=== PATIENT | female | born 2000 | race African-American/Black ===

== ENCOUNTER 2020-10-03 18:29 | Emergency (ER) | payer OTHER, SELFPAY ==
[2020-10-03 18:50] VITALS: BP 123/62; PULSE 76; RESP 20; TEMP 36.5; O2SAT 100; BMI 29.2
--- NOTE | 2020-10-03 20:21 | XR_ITS ---
EXAMINATION: CHEST 1 VIEW CLINICAL INFORMATION: Chest pain. COMPARISON: None. TECHNIQUE: An AP view of the chest is provided. FINDINGS: The cardiac silhouette is not enlarged. The mediastinal and hilar contours are unremarkable. There are neither pleural effusions nor pneumothoraces. There are no consolidations. The osseous structures are unremarkable. XR/XR chest 1V IMPRESSION: No evidence for acute disease.
--- NOTE | 2020-10-03 20:21 | ECG_ITS ---
Test Reason : CHEST PAIN Blood Pressure : / mmHG Vent. Rate : 051 BPM Atrial Rate : 051 BPM P-R Int : 122 ms QRS Dur : 086 ms QT Int : 428 ms P-R-T Axes : 027 035 037 degrees QTc Int : 394 ms Sinus bradycardia with sinus arrhythmia Otherwise normal ECG No previous ECGs available Referred By: Marisa Colbert Electronically Signed By:TRAV REDDY MD
--- NOTE | 2020-10-03 20:22 | ED.CHESTPAIN ---
HPI - Chest Pain General Chief Complaint: Chest Pain Stated Complaint: Chest Pain Time Seen by Provider: 10/03/20 20:20 Source: patient Mode of arrival: ambulatory Limitations: no limitations History of Present Illness HPI narrative: 20-year-old female came in with few hours history of sore throat and coughing pain in the right chest when she coughs. Symptoms started about 5 hours ago before arrival, no recent exposure to sick contacts, symptoms is intermittent, no aggravating factors, no alleviating factors, associated with sore throat and dry cough, patient at low risk for PE or coronary artery disease. Related Data Home Medications Medication Instructions Recorded Confirmed fluoxetine 1 cap PO DAILY 10/03/20 10/03/20 hydroxyzine pamoate 1 cap PO ONCE PRN 10/03/20 10/03/20 Allergies Allergy/AdvReac Type Severity Reaction Status Date / Time No Known Allergies Allergy Unverified 08/01/20 16:50 [No Known Allergies*] Review of Systems Review of Systems: All other systems are reviewed and are negative Constitutional: Reports as per HPI and Reports no additional constitutional complaints Eyes: Reports as per HPI and Reports no additional eye complaints Reports system reviewed and no additional complaints, except as documented Cardiovascular: Reports as per HPI and Reports no additional cardiovascular complaints Respiratory: Reports as per HPI and Reports no additional respiratory complaints Gastrointestinal: Reports as per HPI and Reports no additional gastrointestinal complaints Genitourinary: Reports no additional female genitourinary complaints Musculoskeletal: Reports no additional musculoskeletal complaints Skin/Breast: Reports system reviewed and no additional complaints, except as docu Psychiatric: Reports no additional psychiatric complaints Endocrine: Reports no additional endocrine complaints Hematologic/Lymphatic: Reports no additional hematologic/lymphatic complaints Allergic/Immunologic: Reports no additional allergic/immunologic complaints Reports system reviewed and no additional complaints, except as documented and Reports Abnormal speech present [facility] Past Medical History Medical History Anemia Anxiety Asthma Depression Social History Social History Alcohol intake: never Smoked in Last 30 Days: No Substance Use Type: Marijuana Substance Use Frequency: Daily Last Used Substance: Just Prior to Admission Any prior treatment program specific to substance use: No Advance Directives: No Advance Directives Information Provided: Yes Physical Exam Vital Signs: Vital Signs: Last Vital Signs Temp 97.7 F 10/03/20 18:50 Pulse 76 10/03/20 18:50 Resp 20 10/03/20 18:50 BP 123/62 10/03/20 18:50 Pulse Ox 100 10/03/20 18:50 Body Mass Index 29.2 Vital signs have been reviewed as normal and appeared to be correct. Blood pressure normal. Heart rate normal. Respiration rate normal. Temperature normal. Oxygen saturation normal. Appearance: Alert. Oriented X3. No acute distress. Head: Normal external exam. Normocephalic. Atraumatic. No Sanders signs noted. No raccoon eyes noted Eyes: PERRLA. EOMI. Conjunctiva and sclera normal. Eyelids normal. ENT: EAC normal. TM's Normal. Pharynx normal. Uvula midline. Moist mucous membranes. No trismus noted. No drooling noted. No muffled voice noted. Neck: Normal inspection. Neck supple. FROM. No adenopathy. Thyroid Normal. No meningeal signs. No neck mass noted. CVS: Normal heart rate and rhythm. Heart sound normal. No murmurs noted. Pulses normal throughout. Respiratory: No respiratory distress. Painless inspiration. Breath sounds normal. No wheezes/rales/rhonchi noted. Chest nontender. No accessory muscle usage noted or decreased air movement noted. Abdomen: Soft and nontender. Bowel sounds normal in all 4 quadrants. No distention noted. No organomegaly noted. No visible injury noted. Back: No CVA tenderness. Full range of motion noted. Skin: Skin warm and dry. Normal skin color. Normal skin turgor. No rashes/lesions/lacerations noted. Extremities: No lower extremity edema. Extremities exhibit normal range of motion. Extremities nontender. Neuro: Oriented X 3. No motor deficit. No sensory deficit. Reflexes normal. MDM - Chest Pain MDM Narrative Medical decision making narrative: Assessment and plan. At 20-year-old female otherwise healthy presented with chest pain with coughing, patient had unremarkable EKG, negative troponin, chest x-ray is unremarkable, stable vital signs, also, patient also complaining of sore throat and rapid strep is negative. Will discharge the patient to follow-up with PCP. Lab Data Attestation: I reviewed the patient's lab results. Labs: Lab Results 10/03/20 Range/Units 21:23 Troponin I High Sens < 3.5 (<3.5-17.0) ng/L Imaging Data Chest x-ray: Radiologist's impression: No acute pathology. ECG Data ECG #1: Interpretation: Sinus bradycardia at 51 beats per minute, normal axis deviation, normal intervals, no ST-T changes. Discharge Plan Discharge Clinical Impression: Atypical chest pain, Acute sore throat Patient Disposition: Home, Self-Care Instructions: Pharyngitis (ED) Prescriptions: No Action hydroxyzine pamoate 50 mg capsule 1 cap PO ONCE PRN (Reason: anxiety) RF: 0 fluoxetine 20 mg capsule 1 cap PO DAILY RF: 0 Referrals: Long Fry MD [Primary Care Provider] - 2 days
[2020-10-03 22:19] LABS: Troponin-I High Sensitivity < 3.5 ng/L (<3.5-17.0)
== END 2020-10-03 22:00 | disposition home or self-care (01) ==
PROVIDERS: Emergency Provider Emergency Medicine; PCP Pediatrics
DX: R07.89 Other chest pain (principal); J02.9 Acute pharyngitis, unspecified; F12.90 Cannabis use, unspecified, uncomplicated; Z79.899 Other long term (current) drug therapy
CPT/HCPCS: 71045; 84484; 87071; 87880; 93005; 99283; 99284

== ENCOUNTER 2020-10-16 09:16 | Outpatient (REF) | payer OTHER, SELFPAY | END 2020-10-16 09:17 | disposition home or self-care (01) | LOC: HO.LAB 09:16 | PROVIDERS: Visit Provider Internal Medicine | DX: Z20.828 Contact with and (suspected) exposure to other viral communicable diseases (principal) | CPT/HCPCS: C9803; U0003 ==

== ENCOUNTER 2023-10-02 15:38 | Emergency (ER) | payer OTHER, SELFPAY ==
--- NOTE | ~2023-10-02 | XR_ITS ---
EXAMINATION: XR HAND, RIGHT CLINICAL INFORMATION: Hand pain COMPARISON: None available. TECHNIQUE: PA, lateral, and oblique views of the right hand. FINDINGS: No fractures, subluxations, dystrophic calcifications, arthropathic changes or soft tissue inflammatory changes noted. Normal bone mineralization. Incidental 2 mm negative ulnar variance. XR/XR hand RT min 3V IMPRESSION: Normal right hand.
--- NOTE | 2023-10-02 15:56 | ED.GENADULT ---
HPI - General Adult General Chief complaint: Extremity Injury, Upper Stated complaint: R hand pain, injury at home Time Seen by Provider: 10/02/23 16:22 Source: patient Mode of arrival: ambulatory Limitations: no limitations History of Present Illness HPI narrative: 23 year old female with pmhx significant for asthma and anxiety presents to the ED today with right hand pain/swelling s/p punching her tiled floor 5 days ago. Admits to being frustrated and overstimulated causing her to punch the floor. Endorses pain to 3rd, 4th, and 5th digits on right hand, worse with movement. No radiation of pain. Denies left wrist, forearm, or elbow pain. Has been using an icepack at home with temporary relief of pain. Has not taken medications at home for this. Denies fever, chills, nausea/vomiting, numbness tingling or weakness of the right upper extremity. Related Data Home Medications Medication Instructions Recorded Confirmed fluoxetine 20 mg capsule 1 cap PO DAILY 10/03/20 10/03/20 hydroxyzine pamoate 50 mg capsule 1 cap PO ONCE PRN anxiety 10/03/20 10/03/20 Allergies Allergy/AdvReac Type Severity Reaction Status Date / Time No Known Allergies Allergy Verified 10/02/23 15:55 [No Known Allergies*] Review of Systems Review of Systems: Constitutional: No fever, chills, fatigue, night sweats, weight changes ENT/Mouth: No ear pain, hearing loss, nasal congestion, sinus pain, rhinorrhea, sore throat Eyes: No eye pain, swelling, redness, vision changes, discharge Cardio: No chest pain, palpitations, RICH, orthopnea, peripheral edema Pulm: No SOB, cough, sputum, wheezing, dyspnea, hemoptysis GI: No nausea, vomiting, hematemesis, abdominal pain, diarrhea, constipation, hematochezia, melena : No irregular bleeding, dysuria, frequency, urgency, hesitancy, hematuria, flank pain, urinary flow changes, urinary incontinence or retention MSK: No back pain, neck pain, joint pain, myalgias, +right hand pain/swelling Skin: No lesions, rashes Neuro: No weakness, numbness, paresthesias, LOC, dizziness, headache All other systems reviewed and are negative. [facility] Past Medical History Attestation statement: The following information was validated with the patient. Source: old records reviewed and nursing notes reviewed Medical History Anemia Depression Anxiety Asthma Social History Social History Alcohol intake: never Substance Use Type: Marijuana Advance Directives: No Physical Exam ED Vital Signs: Vital Signs - 24 hr 10/02/23 15:57 Temperature 97.9 F Pulse Rate 65 Respiratory Rate 16 Blood Pressure 124/86 Pulse Oximetry 97 Oxygen Delivery Method Room Air BMI result Body Mass Index 27.8 Vital signs stable Const General: cooperative, comfortable, no acute distress, alert and awake Orientation/consciousness: patient oriented x3 Limitations: no limitations HENMT Ears: hearing grossly normal bilaterally Eyes General: appearance normal, both eyes and all related structures Resp Effort & Inspection: normal respiratory effort Auscultation: clear to auscultation bilaterally Cardio Rate: regular rate Rhythm: regular rhythm Peripheral pulses: radial pulses present Skin General skin exam: no rashes or lesions noted Neuro General: patient oriented x3, gait normal and moves all extremities Extrem Other: + Minimal swelling noted to the dorsal aspect of the right hand at the base of the 3rd 4th and 5th digits. No obvious deformity. No overlying erythema or cellulitic changes. Finger to thumb opposition intact. ROM intact to MCP, PCP and DCP of all digits of right hand. There is tenderness to palpation over the 3rd 4th and 5th MCPs. No TTP over the carpal bones. There are 2+ radial and ulnar pulses present. No snuffbox tenderness. General: Yes normal exam except as noted Course Course Course Narrative: This is an RME: Additional HPI, ROS, PE not included below will be deferred to primary provider. This is a [id number]-female, hx of asthma and anxiety, presenting to the ER with complaints of right hand pain x 4 days. Pt states that she punched the floor due to anger and felt pain in her right hand immediately. TTP over 3,4,5th MCPs. radial pulse 2+. Plan: xray right hand Reevaluation(s) Reevaluation #1: 1627-- patient requesting test prior to x-ray > urine preg ordered. 1730-- urine preg negative. xr right hand without acute fracture or subluxation. There is no snuffbox tenderness and splinting is not warranted. I informed patient of image results. Likely contusion. Advised her to take Tylenol and Ibuprofen at home for pain/ discomfort and ice the area as needed to help with pain/ swelling. Discussed strict return precautions. All questions answered at this time. Patient is agreeable with disposition and stable for discharge. 1745-- Upon discharge, RN now informs me that patient is requesting STD testing. She denies vaginal discharge, itching, odor or dysuria. States that she likes to be tested for STDs at every ED visit. She is declining pelvic exam at this time. I gave patient the option for vaginal self swabs vs urine. Patient requesting vaginal swab > CT, NG, BV, and trich swabs ordered. > I informed patient that she will be called with any positive results. All questions answered at this time. Patient is agreeable with disposition and stable for discharge. Medical Decision Making Medical Decision Making [facility] Narrative: 23 year old female with pmhx significant for asthma and anxiety presents to the ED today with right hand pain/swelling s/p punching her tiled floor on Wednesday (5 days ago). VSS. Nontoxic appearing, in NAD. Minimal swelling noted to the dorsal aspect of the right hand at the base of the 3rd 4th and 5th digits. No obvious deformity. No overlying erythema or cellulitic changes. Finger to thumb opposition intact. ROM intact to MCP, PCP and DCP of all digits of right hand. There is tenderness to palpation over the 3rd 4th and 5th MCPs. No TTP over the carpal bones. There are 2+ radial and ulnar pulses present. No snuffbox tenderness. Clinical concern for closed fracture, dislocation. Unlikely open fracture, ligamentous/ tendon injury, osteomyelitis, scaphoid fracture, threat to limb, NV compromise. XR right hand ordered in triage. Plan for review of images and re-eval. Differential Diagnosis Differential Diagnoses: The differential diagnosis associated with the presentation includes As above. Admission/Observation Not indicated. Lab Data [facility] Lab Attestation statement: I reviewed the patient's lab results. As above. Labs: Lab Results 10/02/23 Range/Units 16:32 Urine Test NEGATIVE (NEGATIVE) External Record Review External record reviewed: Inpatient record Prescription Management I considered prescription management with: Pain Medication Critical Care Time Critical Care Time Critical Care Time: No Discharge Plan Discharge Clinical Impression: Hand injury Patient Disposition: Home, Self-Care Instructions: R.I.C.E. Treatment (ED) Additional Instructions: The x-ray of your right hand did not exhibit any fracture or dislocation. You may ice the area as needed. Leave ice on for 20 minutes at a time. You may take tylenol and ibuprofen as needed for pain. If symptoms persist or worsen, return to the ED. In the case of emergency, call 911. Prescriptions: No Action hydroxyzine pamoate 50 mg capsule 1 cap PO ONCE PRN (Reason: anxiety) fluoxetine 20 mg capsule 1 cap PO DAILY Referrals: Physician,Unknown J [Primary Care Provider] - Interventions: ED Discharge Assessment Last Done: 10/02/23 17:42 Discharge Date/Time: 10/02/23 18:07
[2023-10-02 15:57] VITALS: BP 124/86; PULSE 65; RESP 16; TEMP 36.6; O2SAT 97; BMI 27.8
[2023-10-02 16:43] LABS: UPreg QC Valid YES; Urine Pregnancy NEGATIVE (NEGATIVE)
[2023-10-03 09:43] LABS: CT PCR DETECTED (Not Detect.); NG PCR NOT DETECTED (Not Detect.)
[2023-10-04 09:25] LABS: BV Int Neg Control Negative (Negative); BV Int Pos Control Positive (Positive)
== END 2023-10-02 18:07 | disposition home or self-care (01) ==
PROVIDERS: Physician Assistant Medical; Emergency Provider Student in an Organized Health Care Education/Training Program
DX: S69.91XA Unspecified injury of right wrist, hand and finger(s), initial encounter (principal); W22.09XA Striking against other stationary object, initial encounter; A74.9 Chlamydial infection, unspecified; N76.0 Acute vaginitis; Y93.9 Activity, unspecified; Y92.9 Unspecified place or not applicable; Y99.9 Unspecified external cause status; Z32.02 Encounter for pregnancy test, result negative
CPT/HCPCS: 0353U; 73130; 81025; 87480; 87510; 87660; 99282; 99283